=== PATIENT | female | born 1985 | race American Indian/Alaskan Native ===

== ENCOUNTER 2017-04-02 12:43 | Emergency (ER) | payer OTHER ==
[2017-04-02 12:54] VITALS: BP 130/93
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
[2017-04-02] MEDS ORDERED: MOTRIN PO ONE (17:20)
== END 2017-04-02 17:26 | disposition home or self-care (01) ==
LOC: ED 12:43
DX: S00.01XA Abrasion of scalp, initial encounter (principal); V49.59XA Passenger injured in collision with other motor vehicles in traffic accident, initial encounter; Y93.89 Activity, other specified; Y99.9 Unspecified external cause status; Y92.410 Unspecified street and highway as the place of occurrence of the external cause
CPT/HCPCS: 70450

== ENCOUNTER 2018-11-05 05:46 | Emergency (ER) | payer OTHER ==
[2018-11-05] MEDS ORDERED: ULTRAM PO ONE (06:00)
[2018-11-05] MEDS ORDERED: TRIMOX PO ONE (06:00)
[2018-11-05] MEDS ORDERED: ZOFRAN ONE (06:03)
[2018-11-05] MEDS ORDERED: NACL 0.9% 1000 ML 1,000 ML IV ONE (06:04)
--- NOTE | 2018-11-05 06:05 | Emergency Department Report ---
ED ENT HPI - General Stated complaint: N/V Time Seen by Provider: 11/05/18 05:58 - History of Present Illness Initial comments: pt is a 33 y/o aaf with hx of dental carries who presents for dental pain x 1 week , pt states dental carries for past 2 months however she has bee unable to see dentist requesting referral to dentist, pain is desribed as 5/10 aching pain exacerbated by hot and cold stimuli pain is relieved by nsaids, pt is state she is now out of nsaids and pain is worsending, there is no facial swelling no ear or throat pain, pt is tolerating po intake , there is no fever or chills MD complaint: tooth pain Onset/Timin -: month(s) Location: tooth # (32) Severity: moderate Severity scale (0 -10): 5 Quality: aching Consistency: constant Improves with: none Worsens with: other (hot and cold stimuli) Context- Dental: history of dental caries, poor dental care Associated Symptoms: toothache - Related Data Previous Rx's Medication Instructions Recorded Last Taken Type Cyclobenzaprine [Flexeril] 10 mg PO TID PRN #9 tablet 04/02/17 Unknown Rx Ibuprofen [Motrin] 800 mg PO Q8HR PRN #25 tablet 04/02/17 Unknown Rx Allergies Allergy/AdvReac Type Severity Reaction Status Date / Time No Known Allergies Allergy Unverified 04/02/17 12:54 ED Dental HPI - General Stated complaint: N/V Time Seen by Provider: 11/05/18 05:58 - Related Data Previous Rx's Medication Instructions Recorded Last Taken Type Cyclobenzaprine [Flexeril] 10 mg PO TID PRN #9 tablet 04/02/17 Unknown Rx Ibuprofen [Motrin] 800 mg PO Q8HR PRN #25 tablet 04/02/17 Unknown Rx Allergies Allergy/AdvReac Type Severity Reaction Status Date / Time No Known Allergies Allergy Unverified 04/02/17 12:54 ED Review of Systems ROS: Stated complaint: N/V Other details as noted in HPI ED Past Medical Hx - Surgical History Additional Surgical History: tubal ligation - Social History Smoking Status: Never Smoker Substance Use Type: Alcohol - Medications Home Medications: Home Medications Medication Instructions Recorded Confirmed Last Taken Type Cyclobenzaprine [Flexeril] 10 mg PO TID PRN #9 tablet 04/02/17 Unknown Rx Ibuprofen [Motrin] 800 mg PO Q8HR PRN #25 tablet 04/02/17 Unknown Rx Critical care attestation.: If time is entered above; I have spent that time in minutes in the direct care of this critically ill patient, excluding procedure time. ED Disposition Condition: Stable Referrals: TOMY CUADRA MD [Primary Care Provider] - 3-5 Days
[2018-11-05] MEDS ORDERED: ZOFRAN IV ONE (06:07)
--- NOTE | 2018-11-05 06:10 | Emergency Department Report ---
ED N/V/D HPI - General Chief complaint: Nausea/Vomiting/Diarrhea Stated complaint: N/V Time Seen by Provider: 11/05/18 05:58 Source: patient, EMS Mode of arrival: Stretcher Limitations: No Limitations - History of Present Illness Initial comments: Vision is a 33-year-old female that presents emergency room with complaints of body aches, nausea,vomiting and diarrhea. Patient states all her symptoms started 1 - 2 hours ago Patient states her body aches are a 3 out of 10 and are continuous. Patient states the body aches are better with rest and worse with movement. Patient states that yesterday she was eating a piece of chicken at a [employer] restaurant and she noticed that the middle of it was raw but continued to finish the chicken. Patient denies fever and chills. Patient denies blood in her vomitus or in her stool. Patient states her stool is loose but denies mucus in her stool. Patient denies chest pain and shortness of breath. MD complaint: nausea, vomiting, diarrhea, abdominal pain -: Sudden Description of Vomiting: watery Description of Diarrhea: water Associated Abdominal Pain: Yes Location: epigastric Radiation: none Severity: mild Pain Scale: 3 Quality: cramping Consistency: colicky Improves with: rest Worsens with: vomiting, movement Context: possible food poisoning Associated Symptoms: myalgias, nausea/vomiting. denies: chest pain, cough, david phoresis, fever/chills, headaches, loss of appetite, malaise, rash, dysuria, shortness of breath, syncope, weakness - Related Data Previous Rx's Medication Instructions Recorded Last Taken Type Cyclobenzaprine [Flexeril] 10 mg PO TID PRN #9 tablet 04/02/17 Unknown Rx Ibuprofen [Motrin] 800 mg PO Q8HR PRN #25 tablet 04/02/17 Unknown Rx Ondansetron [Zofran Odt] 4 mg PO Q8HR PRN #15 tab.rapdis 11/05/18 Unknown Rx Allergies Allergy/AdvReac Type Severity Reaction Status Date / Time No Known Allergies Allergy Unverified 04/02/17 12:54 ED Review of Systems ROS: Stated complaint: N/V Other details as noted in HPI Constitutional: denies: chills, fever Eyes: denies: eye pain, eye discharge, vision change ENT: denies: ear pain, throat pain Respiratory: denies: cough, shortness of breath, wheezing Cardiovascular: denies: chest pain, palpitations Endocrine: no symptoms reported Gastrointestinal: abdominal pain, nausea, vomiting, diarrhea Genitourinary: denies: urgency, dysuria, discharge Musculoskeletal: denies: back pain, joint swelling, arthralgia Skin: denies: rash, lesions Neurological: denies: headache, weakness, paresthesias Psychiatric: denies: anxiety, depression Hematological/Lymphatic: denies: easy bleeding, easy bruising ED Past Medical Hx - Past Medical History Previous Medical History?: Yes Hx of Cancer: Yes (Breast Cancer (in remission)) - Surgical History Past Surgical History?: Yes Additional Surgical History: tubal ligation - Family History Family history: no significant - Social History Smoking Status: Never Smoker Substance Use Type: Alcohol - Medications Home Medications: Home Medications Medication Instructions Recorded Confirmed Last Taken Type Cyclobenzaprine [Flexeril] 10 mg PO TID PRN #9 tablet 04/02/17 Unknown Rx Ibuprofen [Motrin] 800 mg PO Q8HR PRN #25 tablet 04/02/17 Unknown Rx Ondansetron [Zofran Odt] 4 mg PO Q8HR PRN #15 tab.rapdis 11/05/18 Unknown Rx ED Physical Exam - General Limitations: No Limitations General appearance: alert, in no apparent distress - Head Head exam: Present: atraumatic, normocephalic - Eye Eye exam: Present: normal appearance, PERRL Pupils: Present: normal accommodation - ENT ENT exam: Present: mucous membranes dry - Neck Neck exam: Present: normal inspection - Respiratory Respiratory exam: Present: normal lung sounds bilaterally. Absent: respiratory distress - Cardiovascular Cardiovascular Exam: Present: regular rate, normal rhythm. Absent: systolic murmur, diastolic murmur, rubs, gallop - GI/Abdominal GI/Abdominal exam: Present: soft, tenderness (epigastric ttp), normal bowel sounds - Extremities Exam Extremities exam: Present: normal inspection - Back Exam Back exam: Present: normal inspection - Neurological Exam Neurological exam: Present: alert, oriented X3 - Psychiatric Psychiatric exam: Present: normal affect, normal mood - Skin Skin exam: Present: warm, dry, intact, normal color. Absent: rash ED Course Vital Signs 11/05/18 11/05/18 11/05/18 05:57 06:01 06:13 Pulse Rate 118 H 116 H Respiratory 19 15 19 Rate Blood Pressure 124/86 O2 Sat by Pulse 99 Oximetry - Reevaluation(s) Reevaluation #1: Patient has received fluids. Patient states she is feeling better. Patient will be given Toradol IV and a by mouth challenge. Discussed all results with patient. Patient's heart rate has improved. 11/05/18 07:10 Patient tolerated by mouth challenge. Patient has not had any nausea vomiting since being given Zofran. Patient states she is ready to go home. Patient given discharge instructions. Patient is stable for discharge. Patient given return to ER instructions. Patient voiced understanding of all instructions. 11/05/18 07:35 Patient states she is feeling back to normal and has not had any nausea vomiting. Patient has tolerated by mouth fluids and by mouth solids. Patient's body aches have resolved. Patient is stable for discharge 11/05/18 08:09 ED Medical Decision Making - Lab Data Result diagrams: 11/05/18 06:14 11/05/18 06:14 - Medical Decision Making Patient is a 33-year-old female that presents emergency room with complaints of nausea vomiting and diarrhea. Patient had complaints of symptoms were possibly secondary to rock chicken. Patient's labs are unremarkable. Patient's findings are consistent with a viral gastroenteritis. Patient will be treated accordingly with Zofran and increased oral hydration as well as of breath diet. Patient given discharge instructions. Patient given education. Discussed all results with patient. Patient symptomatically improved with IV hydration of 200 mils. Patient completed her saline bolus and will be discharged home. Patient tolerated by mouth challenge. Patient's body aches resolved with fluids and Toradol. Labs are unremarkable. - Differential Diagnosis food toxicity. Gastroenteritis. Nausea vomiting diarrhea Critical care attestation.: If time is entered above; I have spent that time in minutes in the direct care of this critically ill patient, excluding procedure time. ED Disposition Clinical Impression: Acute gastroenteritis, Generalized body aches Nausea & vomiting Qualifiers: Vomiting type: unspecified Vomiting Intractability: non-intractable Qualified Code(s): R11.2 - Nausea with vomiting, unspecified Diarrhea Qualifiers: Diarrhea type: unspecified type Qualified Code(s): R19.7 - Diarrhea, unspecified Abdominal pain Qualifiers: Abdominal location: epigastric Qualified Code(s): R10.13 - Epigastric pain Disposition: TO HOME OR SELFCARE Is pt being admited?: No Does the pt Need Aspirin: No Condition: Stable Instructions: Traveler's Diarrhea (ED), Gastroenteritis (ED), Acute Nausea and Vomiting (ED), Food Poisoning (ED) Additional Instructions: Patient to follow up with primary care in 2-3 days. Patient to return to ER if condition worsens. Patient to eat a BRAT diet. Patient to increase water. Patient to take meds as directed. Patient to take Tylenol or ibuprofen when necessary for pain. Prescriptions: Ondansetron [Zofran Odt] 4 mg PO Q8HR PRN #15 tab.rapdis PRN Reason: Nausea And Vomiting Referrals: TOMY CUADRA MD [Primary Care Provider] - 2-3 Days Time of Disposition: 07:34
[2018-11-05 06:12] VITALS: BP 124/86
[2018-11-05 06:45] LABS: Basophils % (Auto) 0.5 % (0.0-1.8); Eosinophils % (Auto) 0.1 % (0.0-4.3); Hematocrit 39.4 % (30.3-42.9); Hemoglobin 13.3 gm/dl (10.1-14.3); Lymphocytes # (Auto) 0.6 K/mm3 (1.2-5.4); Lymphocytes % (Auto) 7.9 % (13.4-35.0); Mean Corpuscular HGB Conc 34 % (30-34); Mean Corpuscular Volume 93 fl (79-97); Monocytes # (Auto) 0.2 K/mm3 (0.0-0.8); Monocytes % (Auto) 2.5 % (0.0-7.3); Platelet Count 212 K/mm3 (140-440); Red Blood Count 4.22 M/mm3 (3.65-5.03); Red Cell Distribution Width 14.1 % (13.2-15.2)
[2018-11-05 06:55] LABS: Alanine Aminotransferase 13 units/L (7-56); Albumin 4.7 g/dL (3.9-5); BUN/Creatinine Ratio 14; Blood Urea Nitrogen 11 mg/dL (7-17); Calcium 9.4 mg/dL (8.4-10.2); Hemolysis Index 16
[2018-11-05] MEDS ORDERED: TORADOL IV ONE (07:31)
== END 2018-11-05 08:29 | disposition home or self-care (01) ==
LOC: ED 05:46
DX: K52.9 Noninfective gastroenteritis and colitis, unspecified (principal); M79.10 Myalgia, unspecified site
CPT/HCPCS: 36415; 80053; 83690; 85025; 96361; 96374; 96375; 99283; J1885; J2405